=== PATIENT | male | born 1975 ===

== ENCOUNTER 2016-09-23 10:12 | Emergency (ER) | payer OTHER ==
[2016-09-23 10:28] VITALS: BP 154/102; PULSE 62; RESP 19; TEMP 98.2; O2SAT 98
[2016-09-23] MEDS ORDERED: Naproxen 500 MG TAB PO ONE ×2 (11:14→11:27)
--- NOTE | 2016-09-23 11:44 | ED PDOC ---
HPI: General Adult Time Seen by Provider: 09/23/16 10:43 Chief Complaint (Nursing): Lower Extremity Problem/Injury Chief Complaint (Provider): right knee pain History Per: Patient History/Exam Limitations: no limitations Additional Complaint(s): 41yo male comes to the ED complaining of atraumatic right knee pain for 3 days. Worse with movement. Denies fever, rash, swelling. Past Medical History Reviewed: Historical Data, Nursing Documentation, Vital Signs Vital Signs: Last Vital Signs Temp 98.2 F 09/23/16 10:27 Pulse 62 09/23/16 10:27 Resp 19 09/23/16 10:27 BP 154/102 H 09/23/16 10:27 Pulse Ox 98 09/23/16 11:46 - Medical History PMH: Asthma Denies: Alzheimer's Disease, Anemia, Anxiety, Arthritis, Atrial Fibrillation , Bipolar Disorder, Bronchitis, CAD, Cardia Arrhythmia, CHF, COPD, Crohn's Disease, Dementia, Depression, Diverticulitis, Emphysema, Fractures, Gastritis, Gall Bladder Disease, HIV, HTN, Hypercholesterolemia, Hyperthyroidism, Hypothyroidism, Kidney Stones, Migraine, Mitral Valve Prolapse, Multiple Sclerosis, Osteoporosis, Pancreatitis, Paranoia, Parkinson's Disease, Peripheral Edema, Pneumonia, Post Traumatic Stress Disorder, Pulmonary Embolism , Chronic Kidney Disease, Rheumatoid Arthritis, Schizophrenia, Seizures, Sickle Cell Disease, Sexually Transmitted Disease, Sleep Apnea, TIA - Surgical History Surgical History: Denies: Appendectomy, CABG, Carotid Endarterectomy, Cholecystectomy, Coronary Stent, Pacemaker, Tonsillectomy - Family History Family History: States: Unknown Family Hx - Home Medications Home Medications: Ambulatory Orders Medication Instructions Recorded Albuterol HFA [Ventolin HFA 90 2 puff IH Q4 PRN #0 puff 04/29/14 mcg/actuation (8 g)] Prednisone [Deltasone] 40 mg PO DAILY #0 tab 04/29/14 levoFLOXacin [Levaquin] 500 mg PO DAILY #0 tab 04/29/14 Naproxen [Naprosyn] 500 mg PO BID PRN #30 tab 09/23/16 - Allergies Allergies/Adverse Reactions: Allergies Allergy/AdvReac Type Severity Reaction Status Date / Time No Known Allergies Allergy Verified 04/26/14 09:33 Review of Systems ROS Statement: Except As Marked, All Systems Reviewed And Found Negative Constitutional: Negative for: Fever Musculoskeletal: Positive for: Other (knee pain) Skin: Negative for: Rash Physical Exam - Reviewed Nursing Documentation Reviewed: Yes Vital Signs Reviewed: Yes - Physical Exam Appears: Positive for: Well, Non-toxic, No Acute Distress Head Exam: Positive for: ATRAUMATIC, NORMAL INSPECTION, NORMOCEPHALIC Skin: Positive for: Warm, Dry Extremity: Positive for: Other (Minimal tenderness on medial surface of right knee. Full ROM actively. No joint laxity.). Negative for: Deformity, Swelling - ECG O2 Sat by Pulse Oximetry: 98 (RA) Pulse Ox Interpretation: Normal - Radiology X-Ray: Interpreted by Me (Knee x-ray) X-Ray Interpretation: No Acute Disease - Progress ED Course And Treament: Knee cammie wrapped by DIANE. Disposition - Clinical Impression Clinical Impression: Knee pain - Patient ED Disposition Is Patient to be Admitted: No - Disposition Referrals: Juan Melendez III, MD [Staff Provider] - [facility] [Outside] Disposition: Routine/Home Disposition Time: 13:25 Condition: STABLE Prescriptions: Naproxen [Naprosyn] 500 mg PO BID PRN #30 tab PRN Reason: Pain Instructions: Knee Pain (ED) Additional Comments - Additional Comments Additional Comments: Scribe Attestation: Documented by Donnie Kyle acting as a scribe for Daniel Riley PA-C. Provider Scribe Attestation: All medical record entries made by the Scribe were at my direction and personally dictated by me. I have reviewed the chart and agree that the record accurately reflects my personal performance of the history, physical exam, medical decision making, and the department course for this patient. I have also personally directed, reviewed, and agree with the discharge instructions and disposition.
--- NOTE | 2016-09-23 14:16 | RAD ---
PROCEDURE: Right Knee Radiographs. HISTORY: pain COMPARISON: None. FINDINGS: BONES: Normal. No fracture. JOINTS: Normal. No osteoarthritis. JOINT EFFUSION: None. OTHER FINDINGS: None. IMPRESSION: No acute findings related to/accounting for the clinical presentation.
== END 2016-09-23 13:43 | disposition home or self-care (01) ==
LOC: H.ER 10:12
DX: M25.561 Pain in right knee (principal)

== ENCOUNTER 2016-11-12 10:43 | Observation (INO) | payer OTHER, SELFPAY ==
[2016-11-12 10:50] VITALS: BMI 36.8
[2016-11-12] MEDS ORDERED: Albuterol-Ipratrop 3 mg / 0.5 (3 ml) UD INH STA ×2 (11:07→11:08)
[2016-11-12] MEDS ORDERED: Sodium Chloride 0.9% 500 ML IV STA (11:07)
[2016-11-12] MEDS ORDERED: Albuterol-Ipratrop 3 mg / 0.5 (3 ml) UD IH STA (11:07)
[2016-11-12] MEDS ORDERED: Albuterol 0.083% Inhal Sol (2.5 mg/3 mL) UD ONE (11:08)
--- NOTE | 2016-11-12 11:08 | ED PDOC ---
HPI: SOB/CHF/COPD Time Seen by Provider: 11/12/16 11:02 Chief Complaint (Nursing): Shortness Of Breath Chief Complaint (Provider): Dyspnea History Per: Patient History/Exam Limitations: no limitations Onset/Duration Of Symptoms: Days (3 weeks) Current Symptoms Are (Timing): Still Present Additional Complaint(s): Pt. with dyspnea, wheezes, chest pain, cough, congestion, yellow phlegm. No back pain, nausea, vomit, diarrhea, abd pain. No weakness. No headaches or dizziness. No neck pain. Past Medical History Vital Signs: Last Vital Signs Temp 98.5 F 11/12/16 10:50 Pulse 79 11/12/16 10:50 Resp 18 11/12/16 11:29 BP 171/102 H 11/12/16 10:50 Pulse Ox 98 11/12/16 13:36 - Medical History PMH: Asthma, HTN Denies: Alzheimer's Disease, Anemia, Anxiety, Arthritis, Atrial Fibrillation , Bipolar Disorder, Bronchitis, CAD, Cardia Arrhythmia, CHF, COPD, Crohn's Disease, Dementia, Depression, Diverticulitis, Emphysema, Fractures, Gastritis, Gall Bladder Disease, HIV, Hypercholesterolemia, Hyperthyroidism, Hypothyroidism , Kidney Stones, Migraine, Mitral Valve Prolapse, Multiple Sclerosis, Osteoporosis, Pancreatitis, Paranoia, Parkinson's Disease, Peripheral Edema, Pneumonia, Post Traumatic Stress Disorder, Pulmonary Embolism, Chronic Kidney Disease, Rheumatoid Arthritis, Schizophrenia, Seizures, Sickle Cell Disease, Sexually Transmitted Disease, Sleep Apnea, TIA - Surgical History Surgical History: Denies: Appendectomy, CABG, Carotid Endarterectomy, Cholecystectomy, Coronary Stent, Pacemaker, Tonsillectomy - Family History Family History: States: Unknown Family Hx - Living Arrangements Living Arrangements: With Family - Social History Current smoker - smoking cessation education provided: No Alcohol: None Drugs: Denies - Home Medications Home Medications: Ambulatory Orders Medication Instructions Recorded No Known Home Med 11/12/16 - Allergies Allergies/Adverse Reactions: Allergies Allergy/AdvReac Type Severity Reaction Status Date / Time No Known Allergies Allergy Verified 11/12/16 10:58 Review of Systems ROS Statement: Except As Marked, All Systems Reviewed And Found Negative ENT: Positive for: Nose Congestion Cardiovascular: Positive for: Chest Pain Respiratory: Positive for: Cough, Shortness of Breath, Sputum Physical Exam - Reviewed Nursing Documentation Reviewed: Yes Vital Signs Reviewed: Yes - Physical Exam Appears: Positive for: Non-toxic, No Acute Distress Head Exam: Positive for: ATRAUMATIC, NORMAL INSPECTION, NORMOCEPHALIC Skin: Positive for: Normal Color, Warm, DRY Eye Exam: Positive for: EOMI, Normal appearance, PERRL ENT: Positive for: Normal ENT Inspection Neck: Positive for: Normal, Painless ROM, Supple Cardiovascular/Chest: Positive for: Regular Rate, Rhythm, Chest Non Tender. Negative for: Edema Respiratory: Positive for: Wheezing (b/l). Negative for: Accessory Muscle Use Gastrointestinal/Abdominal: Positive for: Normal Exam, Bowel Sounds, Soft. Negative for: Tenderness Back: Positive for: Normal Inspection. Negative for: L CVA Tenderness, R CVA Tenderness Extremity: Positive for: Normal ROM. Negative for: Tenderness, Pedal Edema Neurologic/Psych: Positive for: Alert, Oriented - Laboratory Results Result Diagrams: 11/12/16 11:20 11/12/16 11:20 Interpretation Of Abn Labs: 11.5wbc - ECG ECG: Positive for: Interpreted By Me, Viewed By Me ECG Rhythm: Positive for: Nonspecific Changes Interpretation Of Abn EKG: changed from old 2013 O2 Sat by Pulse Oximetry: 98 Pulse Ox Interpretation: Normal - Radiology X-Ray: Read By Radiologist X-Ray Interpretation: No Acute Disease - Progress ED Course And Treament: 1352: Stable. AAOx3. Pain free. Spoke with Dr. Jose who will admit. Abnormal ekg. Disposition - Clinical Impression Clinical Impression: Acute electrocardiogram changes, URI (upper respiratory infection) - Patient ED Disposition Is Patient to be Admitted: Yes Counseled Patient/Family Regarding: Studies Performed, Diagnosis - Disposition Disposition Time: 13:53 Condition: FAIR - Pt Status Changed To: Hospital Disposition Of: Observation - POA Present On Arrival: None
[2016-11-12] MEDS ORDERED: Albuterol-Ipratrop 3 mg / 0.5 (3 ml) UD ONE (11:15)
[2016-11-12 11:37] LABS: BASO # 0.1 K/uL (0.0-0.2); BASO % 0.6 % (0.0-2.0); EOS % 8.7 % (0.0-4.0); HEMATOCRIT 43.4 % (35.0-51.0); LYMPH # 1.8 K/uL (1.0-4.3); MEAN CELL VOLUME 88.1 fl (80.0-94.0); MEAN CORPUSCULAR HEMOGLOBIN 29.6 pg (27.0-31.0); MEAN CORPUSCULAR HGB CONC 33.6 g/dL (33.0-37.0); MEAN PLATELET VOLUME 8.4 fl (7.2-11.7); MONO # 0.9 K/uL (0.0-0.8); NEUT # 7.7 K/uL (1.8-7.0); NEUT % 66.7 % (50.0-75.0); RED CELL DISTRIBUTION WIDTH 13.4 % (11.5-14.5); WHITE BLOOD COUNT 11.5 K/uL (4.8-10.8)
[2016-11-12 11:51] LABS: ALB/GLOB RATIO 1.5 (1.0-2.1); ALKALINE PHOSPHATASE 71 U/L (38-126); ALT/SGPT 60 U/L (21-72); AST/SGOT 32 U/L (17-59); BILIRUBIN,TOTAL 1.8 mg/dl (0.2-1.3); BLOOD UREA NITROGEN 16 mg/dl (9-20); CALCIUM 9.1 mg/dL (8.4-10.2); CARBON DIOXIDE 25 mmol/L (22-30); CHLORIDE 104 mmol/L (98-107); GFR AFRICAN-AMERICAN > 60; GLUCOSE,RANDOM 150 mg/dL (75-110); POTASSIUM 3.8 MMOL/L (3.6-5.0); SODIUM 141 mmol/l (132-148); TOTAL PROTEIN 7.6 G/DL (6.3-8.2)
[2016-11-12 12:07] LABS: PARTIAL THROMBOPLASTIN TIME 29.8 Seconds (25.6-37.1)
--- NOTE | 2016-11-12 13:11 | RAD ---
HISTORY: dyspnea COMPARISON: 04/26/2014 FINDINGS: LUNGS: No active pulmonary disease. PLEURA: No significant pleural effusion identified, no pneumothorax apparent. CARDIOVASCULAR: Normal. OSSEOUS STRUCTURES: No significant abnormalities. VISUALIZED UPPER ABDOMEN: Normal. OTHER FINDINGS: None. IMPRESSION: No active disease.
--- NOTE | 2016-11-12 14:40 | CP.PCM.HP ---
History of Present Illness - History of Present Illness History of Present Illness: CC: chest pressure, trouble breathing HPI: 41 year old male with PMH asthma and hypertension, noncompliant with medications presents to the emergency room after a 2 week history of mild pressure like chest pain, nonradiating, at rest. He has also had cough, dyspnea , with asthma exacerbation. Both chest pain and asthma exacerbation worsened overnight, which is what brought the patient into the emergency room today. EKG showed abnormal changes, with 1 mm elevations V1-V3, and inversions in V4-6, LVH. Repeat EKG without any changes. Patient troponin neg, pt +chest pressure which may either be cardiac or pulmonary in nature due to cough and asthma exacerbation as well. 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 Cardiology consult Dr. Luly Cassidy. CXR no active disease. BP 171/102 in ER, antihypertensives administered. Tele OBS for chest pain, asthma exacerbation. ROS: per HPI, 12 systems reviewed and negative PMH: asthma, HTN PSH: denies FH: denies SH: denies tobacco, ETOH, IVDU Meds: as below Allergies: NKDA Vitals: reviewed and currently stable Exam: GEN: WDWN, alert, cooperative HEENT: NCAT, PERRL, EOMI NECK: supple, no JVD, no lymphadenopathy CARDIAC: +S1S2 RRR LUNG: rhonchi, no respiratory distress ABD: SOFT NT ND BSX4 NO MASSES NO HSM EXT: +pedal pulses, equal strength NEURO: AAOx3 SKIN warm, dry PSYCH normal mood, normal affect Labs: 11/12/16 11:20 11/12/16 11:20 Rads: CXR no active disease Active Medications: Albuterol/Ipratropium [Duoneb 3 mg/0.5 mg (3 ml) UD] 3 ml INH RQ4 PRN Polyethylene Glycol/Polyvinyl [Artificial Tears] 2 drop OU Q4 PRN Clopidogrel [Plavix] 75 mg PO DAILY Lisinopril [Zestril] 10 mg PO DAILY Isosorbide Mononitrate [Imdur] 60 mg PO DAILY Nitroglycerin [Nitrostat SL Tab] 0.4 mg SL Q5M PRN Aspirin [Aspirin Chewable] 81 mg PO DAILY Enoxaparin [Lovenox] 40 mg SC DAILY Assessment and Plan: 41 year old male with PMH asthma and hypertension, noncompliant with medications presents to the emergency room after a 2 week history of mild pressure like chest pain, nonradiating, at rest. He has also had cough, dyspnea , with asthma exacerbation. Both chest pain and asthma exacerbation worsened overnight, which is what brought the patient into the emergency room today. EKG showed abnormal changes, with 1 mm elevations V1-V3, and inversions in V4-6, LVH. Repeat EKG without any changes. Patient troponin neg, pt +chest pressure which may either be cardiac or pulmonary in nature due to cough and asthma exacerbation as well. 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 Cardiology consult Dr. Luly Cassidy. CXR no active disease. BP 171/102 in ER, antihypertensives administered. Tele OBS for chest pain, asthma exacerbation. Chest Pain Hypertension Abnormal EKG changes, severe LVH, possible ischemic changes As above, discussed with ER physician as well as [facility] physician, rec no code heart at this time, full cardiac work up. Trend cardiac enzymes ECHO ordered routine Lipid panel, TSH pending ASA, plavix, low dose BB (after utox results) Imdur, ACEI SL nitro for chest pain Cardiology consult Dr. Luly Cassidy Asthma Exacerbation Solumedrol 60 q 8 Bronchodilators CXR negative for COPD or pneumonia Mag Sulfate x1 VTE ppx Present on Admission - Present on Admission Any Indicators Present on Admission: No Past Patient History - Past Medical History & Family History Past Medical History?: Yes - Past Social History Alcohol: None Drugs: Denies - CARDIAC Hx Atrial Fibrillation: No Hx Cardia Arrhythmia: No Hx Congestive Heart Failure: No Hx Hypercholesterolemia: No Hx Hypertension: Yes Hx Mitral Valve Prolapse: No Hx Pacemaker: No Hx Peripheral Edema: No - PULMONARY Hx Asthma: Yes Hx Bronchitis: No Hx Chronic Obstructive Pulmonary Disease (COPD): No Hx Emphysema: No Hx Pneumonia: No Hx Pulmonary Embolism: No Hx Sleep Apnea: No - NEUROLOGICAL Hx Alzheimer's Disease: No Hx Dementia: No Hx Migraine: No Hx Multiple Sclerosis: No Hx Parkinson's Disease: No Hx Seizures: No Hx Transient Ischemic Attacks (TIA): No - HEENT Hx HEENT Problems: No Hx Blind: No Hx Cataracts: No Hx Deafness: No Hx Difficulty Chewing: No Hx Epistaxis: No Hx Glaucoma: No Hx Macular Degeneration: No - RENAL Hx Chronic Kidney Disease: No Hx Kidney Stones: No - ENDOCRINE/METABOLIC Hx Hyperthyroidism: No Hx Hypothyroidism: No - HEMATOLOGICAL/ONCOLOGICAL Hx Anemia: No Hx Human Immunodeficiency Virus (HIV): No Hx Sickle Cell Disease: No - INTEGUMENTARY Hx Dermatological Problems: No Hx Basil Cell: No Hx Parrish: No Hx Cellulitis: No Hx Eczema: No Hx Melanoma: No Hx Psoriasis: No Hx Squamous Cell: No - MUSCULOSKELETAL/RHEUMATOLOGICAL Hx Arthritis: No Hx Fractures: No Hx Osteoporosis: No Hx Rheumatoid Arthritis: No - GASTROINTESTINAL Hx Crohn's Disease: No Hx Diverticulitis: No Hx Gall Bladder Disease: No Hx Gastritis: No Hx Pancreatitis: No - GENITOURINARY/GYNECOLOGICAL Hx Sexually Transmitted Disorders: No - PSYCHIATRIC Hx Anxiety: No Hx Bipolar Disorder: No Hx Depression: No Hx Paranoia: No Hx Post Traumatic Stress Disorder: No Hx Schizophrenia: No - SURGICAL HISTORY Hx Appendectomy: No Hx Carotid Endarterectomy: No Hx Cholecystectomy: No Hx Coronary Artery Bypass Graft: No Hx Coronary Stent: No Hx Tonsillectomy: No - ANESTHESIA Hx Anesthesia: Yes Hx Anesthesia Reactions: No Hx Malignant Hyperthermia: No Meds Home Medications: Home Medication List Medication Instructions Recorded Confirmed Type Aspirin [Aspirin Chewable] 81 mg PO DAILY #20 11/13/16 Rx Lisinopril [Zestril] 10 mg PO DAILY #30 tab 11/13/16 Rx hydroCHLOROthiazide [Microzide] 12.5 mg PO DAILY #30 cap 11/13/16 Rx Allergies/Adverse Reactions: Allergies Allergy/AdvReac Type Severity Reaction Status Date / Time No Known Allergies Allergy Verified 11/12/16 10:58 Results - Vital Signs Recent Vital Signs: Last Vital Signs Temp 98.5 F 11/12/16 10:50 Pulse 79 11/12/16 10:50 Resp 18 11/12/16 11:29 BP 171/102 H 11/12/16 10:50 Pulse Ox 98 11/12/16 13:53 - Labs Result Diagrams: 11/12/16 11:20 11/12/16 11:20
[2016-11-12] MEDS ORDERED: Albuterol-Ipratrop 3 mg / 0.5 (3 ml) UD INH PRN (14:44)
[2016-11-12] MEDS ORDERED: Artificial Tears Opht Soln OU PRN (14:46)
[2016-11-12] MEDS ORDERED: methylPREDNISolone 60 MG in Sodium Chloride 0.9% 50 ML IV ONE (15:00)
--- NOTE | 2016-11-12 17:03 | CARD ---
APPROVED REPORT EKG Measurement Heart [id number] 140P-8 [id number] <Conclusion> Normal sinus rhythm Voltage criteria for left ventricular hypertrophy ST & T wave abnormality, consider inferolateral ischemia Abnormal ECG
[2016-11-12] MEDS ORDERED: Magnesium Sulfate 2 gm/50 ml 2 GM/50 ML BAG IVPB ONE (17:39)
[2016-11-12 17:45] LABS: TROPONIN I 0.013 ng/mL (0.00-0.120)
[2016-11-12] MEDS ORDERED: Pneumococcal 23-Valent Vaccine IM ONE (18:36)
[2016-11-12 23:47] VITALS: RESP 20
[2016-11-13] MEDS: methylPREDNISolone 60 MG in Sodium Chloride 0.9% 50 ML IVPB SCH ×2 (01:42→09:06)
--- NOTE | 2016-11-13 08:33 | CP.PCM.CON ---
History of Present Illness - History of Present Illness History of Present Illness: Full Note Dictated. Chest Wall Pain Acute exacerbation of Chr Br Asthma Hypertension Obesity Non compliance with med management No evidence of ACS EKG consistent with LVH (awaits echo today) Past Patient History - Past Medical History & Family History Past Medical History?: Yes - Past Social History Smoking Status: Former Smoker - CARDIAC Hx Cardiac Disorders: Yes Hx Atrial Fibrillation: No Hx Cardia Arrhythmia: No Hx Congestive Heart Failure: No Hx Hypercholesterolemia: No Hx Hypertension: Yes Hx Mitral Valve Prolapse: No Hx Pacemaker: No Hx Peripheral Edema: No - PULMONARY Hx Respiratory Disorders: Yes Hx Asthma: Yes Hx Bronchitis: No Hx Chronic Obstructive Pulmonary Disease (COPD): No Hx Emphysema: No Hx Pneumonia: No Hx Pulmonary Embolism: No Hx Sleep Apnea: No - NEUROLOGICAL Hx Neurological Disorder: No Hx Alzheimer's Disease: No Hx Dementia: No Hx Migraine: No Hx Multiple Sclerosis: No Hx Parkinson's Disease: No Hx Seizures: No Hx Transient Ischemic Attacks (TIA): No - HEENT Hx HEENT Problems: No Hx Blind: No Hx Cataracts: No Hx Deafness: No Hx Difficulty Chewing: No Hx Epistaxis: No Hx Glaucoma: No Hx Macular Degeneration: No - RENAL Hx Chronic Kidney Disease: No Hx Kidney Stones: No - ENDOCRINE/METABOLIC Hx Endocrine Disorders: No Hx Hyperthyroidism: No Hx Hypothyroidism: No - HEMATOLOGICAL/ONCOLOGICAL Hx Blood Disorders: No Hx Anemia: No Hx Blood Transfusions: No Hx Human Immunodeficiency Virus (HIV): No Hx Sickle Cell Disease: No - INTEGUMENTARY Hx Dermatological Problems: No Hx Basil Cell: No Hx Parrish: No Hx Cellulitis: No Hx Eczema: No Hx Melanoma: No Hx Psoriasis: No Hx Squamous Cell: No - MUSCULOSKELETAL/RHEUMATOLOGICAL Hx Musculoskeletal Disorders: No Hx Arthritis: No Hx Falls: No Hx Fractures: No Hx Osteoporosis: No Hx Rheumatoid Arthritis: No - GASTROINTESTINAL Hx Gastrointestinal Disorders: No Hx Crohn's Disease: No Hx Diverticulitis: No Hx Gall Bladder Disease: No Hx Gastritis: No Hx Pancreatitis: No - GENITOURINARY/GYNECOLOGICAL Hx Genitourinary Disorders: No Hx Sexually Transmitted Disorders: No - PSYCHIATRIC Hx Psychophysiologic Disorder: No Hx Anxiety: No Hx Bipolar Disorder: No Hx Depression: No Hx Paranoia: No Hx Post Traumatic Stress Disorder: No Hx Schizophrenia: No Hx Substance Use: No - SURGICAL HISTORY Hx Surgeries: Yes Hx Appendectomy: No Hx Carotid Endarterectomy: No Hx Cholecystectomy: No Hx Coronary Artery Bypass Graft: No Hx Coronary Stent: No Hx Tonsillectomy: No Other/Comment: Hernia Repair - ANESTHESIA Hx Anesthesia: Yes Hx Anesthesia Reactions: No Hx Malignant Hyperthermia: No Meds Allergies/Adverse Reactions: Allergies Allergy/AdvReac Type Severity Reaction Status Date / Time No Known Allergies Allergy Verified 11/12/16 10:58 - Medications Medications: Current Medications Albuterol/Ipratropium (Duoneb 3 Mg/0.5 Mg (3 Ml) Ud) 3 ml INH RQ4 PRN PRN Reason: Shortness of Breath Artificial Tears (Artificial Tears) 2 drop OU Q4 PRN PRN Reason: Dry eyes Aspirin (Aspirin Chewable) 81 mg PO DAILY [facility] Enoxaparin Sodium (Lovenox) 40 mg SC DAILY [facility] PRN Reason: Protocol Hydrochlorothiazide (Microzide) 12.5 mg PO DAILY [facility] Methylprednisolone 60 mg/ (Sodium Chloride) 50.96 mls @ 101.92 mls/hr IVPB Q8 [facility] Last Admin: 11/13/16 01:42 Dose: 101.92 mls/hr Lisinopril (Zestril) 10 mg PO DAILY [facility] Last Admin: 11/12/16 15:48 Dose: 10 mg Results - Vital Signs Recent Vital Signs: Last Vital Signs Temp 97.7 F 11/13/16 08:05 Pulse 75 11/13/16 08:05 Resp 20 11/13/16 08:05 BP 130/67 11/13/16 08:05 Pulse Ox 94 L 11/13/16 08:05 - Labs Result Diagrams: 11/12/16 11:20 11/12/16 11:20 Labs: Laboratory Results - last 24 hr 11/12/16 11/12/16 11/12/16 15:15 16:30 16:30 Hemoglobin A1c 5.5 Troponin I 0.0130 Triglycerides 47 Cholesterol 191 LDL Cholesterol Direct 137 H HDL Cholesterol 46 TSH 3rd Generation Urine Opiates Screen Negative Urine Methadone Screen Negative Ur Barbiturates Screen Negative Ur Phencyclidine Scrn Negative Ur Amphetamines Screen Negative U Benzodiazepines Scrn Negative U Oth Cocaine Metabols Negative U Cannabinoids Screen Negative 11/13/16 11/13/16 03:03 04:10 Hemoglobin A1c Troponin I 0.0390 Triglycerides Cholesterol LDL Cholesterol Direct HDL Cholesterol TSH 3rd Generation 1.25 Urine Opiates Screen Urine Methadone Screen Ur Barbiturates Screen Ur Phencyclidine Scrn Ur Amphetamines Screen U Benzodiazepines Scrn U Oth Cocaine Metabols U Cannabinoids Screen
--- NOTE | 2016-11-13 08:52 | CARD ---
APPROVED REPORT EKG Measurement Heart [id number] [place] 158P50 [id number] <Conclusion> Normal sinus rhythm Possible Left atrial enlargement Left ventricular hypertrophy ST elevation, consider anterior injury or acute infarct ACUTE [place] / STEMI Abnormal ECG
[2016-11-13] MEDS ORDERED: Enoxaparin 40 mg Syringe SC SCH (09:00)
--- NOTE | 2016-11-13 10:34 | CON ---
DATE: 11/13/2016 He is hospitalized under the hospitalist's care in room 401, bed 2. HISTORY OF PRESENT ILLNESS: This 41-year-old chronically overweight man came into the hospital compl aining of difficulty in breathing and chest pain which is all over his anterior chest, including both flanks. This was aggravated on attempting to cough. The patient has had this pain for more than 2- 1/2-3 days now. He has been chronically overweight and has had bronchial asthma for which he has not taken any medications. He also knows that he has hypertension, but has not been able to take medica tions, possibly unable to afford it. He does not smoke. He gives history of his father having coron ayse artery disease and diabetes. The patient has never been told of being diabetic. Physical activi ty never brings on any chest pain. The discomfort in the chest as described about does not radiate t o his arms or to his jaw. PHYSICAL EXAMINATION: GENERAL: Shows a young man who is overweight, who is lying comfortably in bed, at this point free of any chest pain, but does admit that attempts to cough bring on the flank pain that has bothered him. VITAL SIGNS: He breathes at approximately 18-20 breaths per minute, has a heart rate of 64 beats per minute. He has received carvedilol yesterday evening. His blood pressure was 140/90 mmHg. NECK: His jugular venous pressure was not elevated. EXTREMITIES: There was no edema over his lower extremities. The pedal pulses were well felt. There were no carotid bruits. CHEST: Barrel shaped. HEART: The apex was not palpable. The first and second heart sounds were normal. A very brief apic al systolic murmur was audible. There was no S3 gallop. LUNGS: The expiration was prolonged. There were a few wheezes audible at both bases. No rales were audible. ABDOMEN: Soft. Liver and spleen were not palpable. His electrocardiogram showed sinus rhythm with a pattern of left ventricular hypertrophy with ST-T ab normalities typical of LVH. No Q-waves were seen on his electrocardiogram. LABORATORY DATA: Showed no evidence of any myocyte injury with 3 troponin samples acquired, 8 hours apart being within normal limits. His hemoglobin and hematocrit were 14.6 g and 43.4%, respectively. His WBC count was 11,500 of which 66% were neutrophils. His platelet count was normal. His BUN an d creatinine were 13 and 0.7 mg%. His electrolytes were normal. Liver profile was normal and proBNP was 364 mcg/mL. TSH level was normal. His LDL cholesterol was 137 with HDL of 46 mg%. IMPRESSION: At this time is chest wall pain with no evidence of acute coronary syndrome in a patient who is noncompliant with his medications, acute exacerbation of chronic bronchial asthma with chest wall pain, hypertension, chronic obesity. His electrocardiogram shows a pattern of left ventricular hypertrophy. No evidence of an acute coronary syndrome is seen here. I have discontinued beta block jarod given the fact that he has an exacerbation of chronic obstructive pulmonary disease. With his AC E inhibitor, I have given him hydrochlorothiazide to maintain a regular rhythm and again instructed h im regarding reducing salt intake in his diet and losing weight. An echocardiogram is awaited. I wi ll review the case after an echocardiogram. Lavon Cassidy MD cc: [id number] TT: 11/13/2016 10:33:45 Confirmation # [id number] Dictation # [id number]
[2016-11-13 10:38] VITALS: PULSE 75; TEMP 97.7
--- NOTE | 2016-11-13 10:40 | CP.PCM.DIS ---
Provider - Provider Date of Admission: 11/12/16 13:51 Attending physician: Vivian Jose DO Time Spent in preparation of Discharge (in minutes): 30 Diagnosis - Discharge Diagnosis (1) Acute electrocardiogram changes Status: Acute (2) URI (upper respiratory infection) Status: Acute (3) Acute asthma exacerbation Status: Acute Hospital Course - Lab Results Lab Results: Most Recent Lab Values WBC 11.5 K/uL (4.8-10.8) H 11/12/16 11:20 RBC 4.93 Mil/uL (4.40-5.90) 11/12/16 11:20 Hgb 14.6 g/dL (12.0-18.0) 11/12/16 11:20 Hct 43.4 % (35.0-51.0) 11/12/16 11:20 MCV 88.1 fl (80.0-94.0) 11/12/16 11:20 MCH 29.6 pg (27.0-31.0) 11/12/16 11:20 MCHC 33.6 g/dL (33.0-37.0) 11/12/16 11:20 RDW 13.4 % (11.5-14.5) 11/12/16 11:20 Plt Count 221 K/uL (130-400) 11/12/16 11:20 MPV 8.4 fl (7.2-11.7) 11/12/16 11:20 Neut % (Auto) 66.7 % (50.0-75.0) 11/12/16 11:20 Lymph % (Auto) 16.0 % (20.0-40.0) L 11/12/16 11:20 Butts % (Auto) 8.0 % (0.0-10.0) 11/12/16 11:20 Eos % (Auto) 8.7 % (0.0-4.0) H 11/12/16 11:20 Baso % (Auto) 0.6 % (0.0-2.0) 11/12/16 11:20 Neut # 7.7 K/uL (1.8-7.0) H 11/12/16 11:20 Lymph # 1.8 K/uL (1.0-4.3) 11/12/16 11:20 Butts # 0.9 K/uL (0.0-0.8) H 11/12/16 11:20 Eos # 1.0 K/uL (0.0-0.7) H 11/12/16 11:20 Baso # 0.1 K/uL (0.0-0.2) 11/12/16 11:20 PT 11.8 Seconds (9.8-13.1) 11/12/16 11:20 INR 1.0 (0.9-1.2) 11/12/16 11:20 APTT 29.8 Seconds (25.6-37.1) 11/12/16 11:20 Sodium 141 mmol/l (132-148) 11/12/16 11:20 Potassium 3.8 MMOL/L (3.6-5.0) 11/12/16 11:20 Chloride 104 mmol/L (98-107) 11/12/16 11:20 Carbon Dioxide 25 mmol/L (22-30) 11/12/16 11:20 Anion Gap 16 (10-20) 11/12/16 11:20 BUN 16 mg/dl (9-20) 11/12/16 11:20 Creatinine 0.7 mg/dL (0.8-1.5) L 11/12/16 11:20 Est GFR ( Amer) > 60 11/12/16 11:20 Est GFR (Non-Af Amer) > 60 11/12/16 11:20 Random Glucose 150 mg/dL (75-110) H 11/12/16 11:20 Hemoglobin A1c 5.5 % (4.2-6.5) 11/12/16 16:30 Calcium 9.1 mg/dL (8.4-10.2) 11/12/16 11:20 Total Bilirubin 1.8 mg/dl (0.2-1.3) H 11/12/16 11:20 AST 32 U/L (17-59) 11/12/16 11:20 ALT 60 U/L (21-72) 11/12/16 11:20 Alkaline Phosphatase 71 U/L (38-126) 11/12/16 11:20 Troponin I 0.0390 ng/mL (0.00-0.120) 11/13/16 03:03 NT-Pro-B Natriuret Pep 364 pg/ml (0-450) 11/12/16 11:20 Total Protein 7.6 G/DL (6.3-8.2) 11/12/16 11:20 Albumin 4.5 g/dL (3.5-5.0) 11/12/16 11:20 Globulin 3.1 gm/dL (2.2-3.9) 11/12/16 11:20 Albumin/Globulin Ratio 1.5 (1.0-2.1) 11/12/16 11:20 Triglycerides 47 mg/DL (0-149) 11/12/16 16:30 Cholesterol 191 mg/dL (0-199) 11/12/16 16:30 LDL Cholesterol Direct 137 mg/dL (0-129) H 11/12/16 16:30 HDL Cholesterol 46 MG/DL (30-70) 11/12/16 16:30 TSH 3rd Generation 1.25 mIU/ML (0.46-4.68) 11/13/16 04:10 Urine Opiates Screen Negative (NEGATIVE) 11/12/16 15:15 Urine Methadone Screen Negative (NEGATIVE) 11/12/16 15:15 Ur Barbiturates Screen Negative (NEGATIVE) 11/12/16 15:15 Ur Phencyclidine Scrn Negative (NEGATIVE) 11/12/16 15:15 Ur Amphetamines Screen Negative (NEGATIVE) 11/12/16 15:15 U Benzodiazepines Scrn Negative (NEGATIVE) 11/12/16 15:15 U Oth Cocaine Metabols Negative (NEGATIVE) 11/12/16 15:15 U Cannabinoids Screen Negative (NEGATIVE) 11/12/16 15:15 - Hospital Course Hospital Course: 41 year old male with PMH asthma and hypertension, noncompliant with medications presents to the emergency room after a 2 week history of mild pressure like chest pain, nonradiating, at rest. He has also had cough, dyspnea , with asthma exacerbation. Both chest pain and asthma exacerbation worsened overnight, which is what brought the patient into the emergency room today. EKG showed abnormal changes, with 1 mm elevations V1-V3, and inversions in V4-6, LVH. Repeat EKG without any changes. Patient troponin neg, pt +chest pressure which may either be cardiac or pulmonary in nature due to cough and asthma exacerbation as well. Discussed with ER physician as well as [facility] Kitchen Porter, no code heart at this time, however patient does need full cardiac work up this admission. Cardiology consult Dr. Luly Cassidy. CXR no active disease. BP 171/102 in ER, antihypertensives administered. Tele OBS for chest pain, asthma exacerbation. No events overnight. No active chest pain. Dyspnea improved. Troponins negative. Seen by Cardiology, no ACS. ECHO today. Will follow up as outpatient. New antihypertensives prescribed. Chest Pain Hypertension Abnormal EKG changes, severe LVH, possible ischemic changes As above, discussed with ER physician as well as [facility] physician, rec no code heart at this time, full cardiac work up. Trend cardiac enzymes ECHO ordered routine Lipid panel, TSH pending ASA, plavix, low dose BB (after utox results) Imdur, ACEI SL nitro for chest pain Cardiology consult Dr. Luly Cassidy Asthma Exacerbation Solumedrol 60 q 8 Bronchodilators CXR negative for COPD or pneumonia Mag Sulfate x1 VTE ppx Discharge Exam - Head Exam Head Exam: ATRAUMATIC, NORMAL INSPECTION, NORMOCEPHALIC - Eye Exam Eye Exam: EOMI, Normal appearance, PERRL Pupil Exam: NORMAL ACCOMODATION - ENT Exam ENT Exam: Mucous Membranes Moist, Normal Oropharynx - Neck Exam Neck exam: Full Rom, Normal Inspection - Respiratory Exam Respiratory Exam: Clear to PA & Lateral, NORMAL BREATHING PATTERN - Cardiovascular Exam Cardiovascular Exam: RRR, +S1, +S2 - GI/Abdominal Exam GI & Abdominal Exam: Normal Bowel Sounds, Soft. absent: Mass, Organomegaly, Tenderness - Extremities Exam Extremities exam: normal capillary refill, pedal pulses present - Back Exam Back exam: absent: CVA tenderness (L), CVA tenderness (R) - Neurological Exam Neurological exam: Alert, Normal Gait, Oriented x3 - Psychiatric Exam Psychiatric exam: Normal Affect, Normal Mood - Skin Skin Exam: Dry, Normal Color, Warm Discharge Plan - Discharge Medications Prescriptions: Aspirin [Aspirin Chewable] 81 mg PO DAILY #20 hydroCHLOROthiazide [Microzide] 12.5 mg PO DAILY #30 cap Lisinopril [Zestril] 10 mg PO DAILY #30 tab - Follow Up Plan Condition: FAIR Disposition: HOME/ ROUTINE Additional Instructions: Follow up with PCP and electrical maintenance engineer as outpatient in one week Resume low fat low cholesterol diet Resume activity as tolerated Take ALL NEW HIGH BLOOD PRESSURE MEDICATIONS: HYDROCHLORTHIAZIDE AND LISINOPRIL. Return to ER if condition worsens.
--- NOTE | 2016-11-13 12:20 | CARD ---
APPROVED REPORT EXAM: Two-dimensional and M-mode echocardiogram with Doppler and color Doppler. Other Information Quality : GoodRhythm : INDICATION Dyspnea Chest Pain 2D DIMENSIONS IVSd1.47 (0.7-1.1cm)LVDd5.48 (3.9-5.9cm) LVOT Diameter1.86 (1.8-2.4cm)PWd1.61 (0.7-1.1cm) IVSs2.15 (0.8-1.2cm)LVDs3.40 (2.5-4.0cm) FS (%) 37.9 %PWs2.16 (0.8-1.2cm) M-Mode DIMENSIONS Left Atrium (MM)4.12 (2.5-4.0cm)IVSd1.59 (0.7-1.1cm) Aortic Root3.65 (2.2-3.7cm)LVDd5.55 (4.0-5.6cm) Aortic Cusp Exc.2.57 (1.5-2.0cm)PWd1.66 (0.7-1.1cm) IVSs1.74 cmFS (%) 44 % LVDs3.14 (2.0-3.8cm)PWs2.46 cm Aortic Valve AoV Peak Ckgiulrd152.6cm/sAoV VTI32.3cmAO Peak GR.9mmHg LVOT Peak Kyfsepwm693.3cm/sLVOT VTI26.47cmAO Mean GR.5mmHg KIMI (VMAX)0.94gf3VYQ (VTI)0.94cm2 Mitral Valve MV E Pbxhziep12.8cm/sMV DECEL AOXR494uvLV A Lpkkmqvj28.8cm/s MV XHL86ilQ/A ratio0.9MVA (PHT)2.73cm2 TDI Lateral E' Peak V5.46cm/sMedial E' Peak V6.03cm/sE/Lateral E'10.2 E/Medial E'9.3 Pulmonary Valve PV Peak Cqmxqmjt203.0cm/s Tricuspid Valve TR Peak Fmbsbbct130nk/sRAP BIWUWBLR05fcOeHD Peak Gr.9mmHg YJLU29zsRj LEFT VENTRICLE The left ventricle is normal size. There is mild concentric left ventricular hypertrophy. The left ventricular function is normal. The left ventricular ejection fraction is within the normal range. The Ejection Fraction is 65-70%. There is normal LV segmental wall motion. The left ventricular diastolic function is normal. No left ventricle thrombus noted on this study. There is no mass noted in the left ventricle. RIGHT VENTRICLE The right ventricle is normal size. There is normal right ventricular wall thickness. The right ventricular systolic function is normal. ATRIA The left atrium is mildly dilated. The right atrium size is normal. The interatrial septum is intact with no evidence for an atrial septal defect. AORTIC VALVE The aortic valve is normal in structure and function. No aortic regurgitation is present. There is no aortic valvular stenosis. There is no aortic valvular vegetation. MITRAL VALVE The mitral valve is normal in structure and function. There is no evidence of mitral valve prolapse. There is no mitral valve stenosis. There is no mitral valve regurgitation noted. TRICUSPID VALVE The tricuspid valve is normal in structure and function. There is no tricuspid valve regurgitation noted. There is no tricuspid valve prolapse or vegetation. There is no tricuspid valve stenosis. PULMONIC VALVE The pulmonary valve is normal in structure and function. There is no pulmonic valvular regurgitation. There is no pulmonic valvular stenosis. GREAT VESSELS The aortic root is normal in size. The IVC is normal in size and collapses >50% with inspiration. PERICARDIAL EFFUSION The pericardium appears normal. There is no pleural effusion. <Conclusion> The left ventricle is normal size. There is mild concentric left ventricular hypertrophy. The left ventricular function is normal. The left ventricular ejection fraction is within the normal range. The Ejection Fraction is 65-70%.
[2016-11-13 12:25] VITALS: BP 137/80; O2SAT 96
[2016-11-13] MEDS ORDERED: Pneumococcal 23-Valent Vaccine IM ONE (14:00)
== END 2016-11-13 14:51 | disposition home or self-care (01) ==
LOC: H.ER 10:43 → H.ERHOLD 13:51 → H.TEL 16:14
PROVIDERS: ADMIT Student in an Organized Health Care Education/Training Program; ATTEND Student in an Organized Health Care Education/Training Program
DX: J45.901 Unspecified asthma with (acute) exacerbation (principal); R94.31 Abnormal electrocardiogram [ECG] [EKG]; J06.9 Acute upper respiratory infection, unspecified; R07.89 Other chest pain; J44.1 Chronic obstructive pulmonary disease with (acute) exacerbation; E66.9 Obesity, unspecified; I11.9 Hypertensive heart disease without heart failure; I51.7 Cardiomegaly; Z79.899 Other long term (current) drug therapy; Z83.3 Family history of diabetes mellitus; Z82.49 Family history of ischemic heart disease and other diseases of the circulatory system; Z87.891 Personal history of nicotine dependence; Z91.14 Patient's other noncompliance with medication regimen; Z23 Encounter for immunization; Z68.36 Body mass index [BMI] 36.0-36.9, adult

== ENCOUNTER 2017-07-02 08:57 | Emergency (ER) | payer SELFPAY ==
[2017-07-02 08:57] VITALS: BMI 36.8
[2017-07-02 09:06] VITALS: PULSE 61
[2017-07-02 11:18] LABS: SQUAMOUS EPITHIAL < 1 /hpf (0-5); URINE BILIRUBIN NEGATIVE (NEGATIVE); URINE BLOOD NEGATIVE (NEGATIVE); URINE CLARITY CLEAR (Clear); URINE COLOR YELLOW (YELLOW); URINE GLUCOSE (UA) NEG (Normal); URINE LEUKOCYTE ESTERASE NEG Leu/uL (Negative); URINE NITRATE NEGATIVE (NEGATIVE); URINE PROTEIN NEGATIVE (NEGATIVE); URINE UROBILINOGEN 0.2-1.0 mg/dL (0.2-1.0)
--- NOTE | 2017-07-02 11:30 | ED PDOC ---
HPI: Male Pain Time Seen by Provider: 07/02/17 09:39 Chief Complaint (Nursing): Male Genitourinary Chief Complaint (Provider): Genital Pain History Per: Patient History/Exam Limitations: no limitations Onset/Duration Of Symptoms: Days (x 1 year) Current Symptoms Are (Timing): Still Present Additional Complaint(s): Chi is a 42 y/o male who presents to the ED complaining of pain from the rectum to testicles to penis for 1 year. Patient states he came in today because it was a little more painful. He denies fever, nausea, vomiting, abdominal pain, urinary symptoms, or difficult bowel movements. PMD: None Past Medical History Reviewed: Historical Data, Nursing Documentation, Vital Signs Vital Signs: Last Vital Signs Temp 97.0 F L 07/02/17 09:05 Pulse 61 07/02/17 09:05 Resp 21 07/02/17 09:05 BP 167/77 H 07/02/17 09:05 Pulse Ox 98 07/02/17 09:05 - Medical History PMH: Asthma, HTN Denies: Arthritis - Surgical History Other surgeries: hernia repair - Family History Family History: States: Unknown Family Hx - Social History Current smoker - smoking cessation education provided: No Alcohol: None - Home Medications Home Medications: Ambulatory Orders Medication Instructions Recorded Aspirin [Aspirin Chewable] 81 mg PO DAILY #20 11/13/16 Lisinopril [Zestril] 10 mg PO DAILY #30 tab 11/13/16 hydroCHLOROthiazide [Microzide] 12.5 mg PO DAILY #30 cap 11/13/16 Ibuprofen [Motrin] 600 mg PO Q6H PRN #20 tab 07/02/17 - Allergies Allergies/Adverse Reactions: Allergies Allergy/AdvReac Type Severity Reaction Status Date / Time No Known Allergies Allergy Verified 11/12/16 10:58 Review of Systems ROS Statement: Except As Marked, All Systems Reviewed And Found Negative Constitutional: Negative for: Fever Gastrointestinal: Negative for: Nausea, Vomiting, Abdominal Pain, Rectal Pain Genitourinary Male: Positive for: Scrotal Pain, Penile Pain. Negative for: Dysuria, Frequency, Incontinence, Hematuria Physical Exam - Reviewed Nursing Documentation Reviewed: Yes Vital Signs Reviewed: Yes - Physical Exam Appears: Positive for: No Acute Distress Skin: Positive for: Normal Color, Warm, DRY Eye Exam: Positive for: Normal appearance Neck: Positive for: Normal, Painless ROM Cardiovascular/Chest: Positive for: Regular Rate, Rhythm. Negative for: Murmur Respiratory: Positive for: Normal Breath Sounds. Negative for: Respiratory Distress Gastrointestinal/Abdominal: Positive for: Soft Male Genital Exam: Positive for: normal genitalia (plug wirer: debra), no hernia. Negative for: bleeding, erythema, lesions, scrotum tenderness (R), scrotum tenderness (L), testicular tenderness (R), testicular tenderness (L), urethral discharge Rectal: Positive for: Normal Exam. Negative for: Hemorrhoids, Mass, Tenderness , Other (fluctuance, hemmorhoids, erythema, edema) Extremity: Positive for: Normal ROM Neurologic/Psych: Positive for: Alert, Oriented - ECG O2 Sat by Pulse Oximetry: 98 (RA) Pulse Ox Interpretation: Normal Medical Decision Making Medical Decision Making: Time: 10:39 Initial Impression: Chronic perineal pain Initial Plan: --Urine Dip --Urine Culture --Urinalysis --US Testes Time: 13:13 US Testes FINDINGS: RIGHT TESTICLE: Measures 5.4 x 3.0 x 2.5 cm. Homogeneous echotexture. No mass. Normal flow. RIGHT EPIDIDYMIS: Normal size and morphology LEFT TESTICLE: Measures 4.4 x 3.6 x 2.4 cm. Homogeneous echotexture. No mass. Normal flow. LEFT EPIDIDYMIS: Normal size and morphology. HYDROCELE: Small left hydrocele, complex, with internal echoes. VARICOCELE: No varicocele OTHER FINDINGS: None. IMPRESSION: Mild complex left hydrocele. No evidence of testicular torsion or epididymo- orchitis. Scribe Attestation: Documented by Mitchell Gibbs, acting as a scribe for Joanna Connolly MD Provider Scribe Attestation: All medical record entries made by the Scribe were at my direction and personally dictated by me. I have reviewed the chart and agree that the record accurately reflects my personal performance of the history, physical exam, medical decision making, and the department course for this patient. I have also personally directed, reviewed, and agree with the discharge instructions and disposition. Disposition - Clinical Impression Clinical Impression: Hydrocele in adult - Disposition Referrals: Lemuel Huber Jr., MD [Staff Provider] - Disposition Time: 13:22 Condition: STABLE Prescriptions: Ibuprofen [Motrin] 600 mg PO Q6H PRN #20 tab PRN Reason: Pain, Moderate (4-7) Instructions: Hydrocele (ED) Forms: [facility] (Mongolian) Print Language: ARABIC
--- NOTE | 2017-07-02 13:14 | US ---
HISTORY: Bilateral testicular pain TECHNIQUE: Realtime sonography through the scrotum with color and doppler flow. COMPARISON: None Available. FINDINGS: RIGHT TESTICLE: Measures 5.4 x 3.0 x 2.5 cm. Homogeneous echotexture. No mass. Normal flow. RIGHT EPIDIDYMIS: Normal size and morphology LEFT TESTICLE: Measures 4.4 x 3.6 x 2.4 cm. Homogeneous echotexture. No mass. Normal flow. LEFT EPIDIDYMIS: Normal size and morphology. HYDROCELE: Small left hydrocele, complex, with internal echoes. VARICOCELE: No varicocele OTHER FINDINGS: None. IMPRESSION: Mild complex left hydrocele. No evidence of testicular torsion or epididymo-orchitis.
[2017-07-02 13:50] VITALS: BP 143/85; RESP 20; TEMP 98
[2017-07-04 10:52] VITALS: O2SAT 98
== END 2017-07-02 13:58 | disposition home or self-care (01) ==
LOC: H.ER 08:57
DX: N43.3 Hydrocele, unspecified (principal); I10 Essential (primary) hypertension; J45.909 Unspecified asthma, uncomplicated; Z79.82 Long term (current) use of aspirin

== ENCOUNTER 2018-04-25 12:25 | Emergency (ER) | payer OTHER, SELFPAY ==
[2018-04-25 12:26] VITALS: BMI 36.8
--- NOTE | 2018-04-25 13:14 | ED PDOC ---
HPI: Male Pain Time Seen by Provider: 04/25/18 13:08 Chief Complaint (Nursing): Male Genitourinary Chief Complaint (Provider): burning urination History Per: Patient History/Exam Limitations: no limitations Onset/Duration Of Symptoms: Days (on and off for months ) Current Symptoms Are (Timing): Still Present Quality Of Discomfort: Burning Associated Symptoms: denies: Fever, Chills Additional Complaint(s): Chi Overton is a 42 year old male, with a past medical history of HTN, who presents to the emergency department complaining of burning urination ongoing on and off for months. Patient was seen here a year ago, he was diagnosed with hydrocele but states pain feels different from that time. Roxana ents notes burning sensation when urinating but not always and also reports rectal pain. He denies any fever, chills or other medical complaints. PMD: None provided. Past Medical History Reviewed: Historical Data, Nursing Documentation, Vital Signs Vital Signs: Last Vital Signs Temp 97.3 F L 04/25/18 12:53 Pulse 66 04/25/18 12:53 Resp 20 04/25/18 12:53 BP 165/96 H 04/25/18 12:53 Pulse Ox 99 04/25/18 12:53 - Medical History PMH: Asthma, HTN Denies: Alzheimer's Disease, Anemia, Anxiety, Arthritis, Atrial Fibrillation, Bipolar Disorder, Bronchitis, CAD, Cardia Arrhythmia, CHF, COPD, Crohn's Disease, Dementia, Depression, Diverticulitis, Emphysema, Fractures, Gastritis, Gall Bladder Disease, HIV, Hypercholesterolemia, Hyperthyroidism, Hypothyroidism, Kidney Stones, Migraine, Mitral Valve Prolapse, Multiple Sclerosis, Osteoporosis, Pancreatitis, Paranoia, Parkinson's Disease, Peripheral Edema, Pneumonia, Post Traumatic Stress Disorder, Pulmonary Embolism, Chronic Kidney Disease, Rheumatoid Arthritis, Schizophrenia, Seizures, Sickle Cell Disease, Sexually Transmitted Disease, Sleep Apnea, TIA - Surgical History Surgical History: Denies: Appendectomy, CABG, Carotid Endarterectomy, Cholecystectomy, Coronary Stent, Pacemaker, Tonsillectomy - Family History Family History: States: Unknown Family Hx - Social History Ex-Smoker (has not smoked in the last 12 months): Yes Alcohol: Social Drugs: Denies - Home Medications Home Medications: Ambulatory Orders Medication Instructions Recorded Aspirin [Aspirin Chewable] 81 mg PO DAILY #20 11/13/16 Lisinopril [Zestril] 10 mg PO DAILY #30 tab 11/13/16 hydroCHLOROthiazide [Microzide] 12.5 mg PO DAILY #30 cap 11/13/16 Ibuprofen [Motrin] 600 mg PO Q6H PRN #20 tab 07/02/17 metFORMIN [glucOPHAGE] 500 mg PO DAILY #15 tab 04/25/18 - Allergies Allergies/Adverse Reactions: Allergies Allergy/AdvReac Type Severity Reaction Status Date / Time No Known Allergies Allergy Verified 04/25/18 12:53 Review of Systems ROS Statement: Except As Marked, All Systems Reviewed And Found Negative Constitutional: Negative for: Fever, Chills Genitourinary Male: Positive for: Dysuria Physical Exam - Reviewed Nursing Documentation Reviewed: Yes Vital Signs Reviewed: Yes - Physical Exam Appears: Positive for: No Acute Distress Head Exam: Positive for: ATRAUMATIC, NORMAL INSPECTION, NORMOCEPHALIC Skin: Positive for: Normal Color, Warm, Dry Eye Exam: Positive for: Normal appearance, EOMI, PERRL Neck: Positive for: Normal, Painless ROM Cardiovascular/Chest: Positive for: Regular Rate, Rhythm. Negative for: Murmur Respiratory: Positive for: Normal Breath Sounds. Negative for: Respiratory Distress Gastrointestinal/Abdominal: Positive for: Normal Exam, Soft. Negative for: Tenderness, Guarding, Rebound Back: Positive for: Normal Inspection Rectal: Negative for: Tenderness (No known rectal tenderness, no prostate tenderness to palpation. Verruca noted along the posterior upper left thigh) Extremity: Positive for: Normal ROM (upper and lower extremities). Negative for: Deformity, Swelling Neurologic/Psych: Positive for: Alert, Oriented - Laboratory Results Result Diagrams: 04/25/18 13:49 04/25/18 13:49 - ECG O2 Sat by Pulse Oximetry: 99 (RA) Pulse Ox Interpretation: Normal - Progress ED Course And Treament: repeat blood glucose 178 Medical Decision Making Medical Decision Making: Time: 13:08 Initial Impression: Rectal pain Initial Plan: --CMP --CBC w/ differential --Urine culture --Urinalysis --Testes Duplex complete [US] --Reevaluation 16:17 Testicular Ultrasound FINDINGS: RIGHT TESTICLE: Measures 5.6 x 3.3 x 2.2 cm. Normal echotexture and flow. RIGHT EPIDIDYMIS: Epididymal head measures 0.9 x 0.7 by is a 1.3 cm. Grossly unremarkable appearance with normal flow. LEFT TESTICLE: Measures 5.2 x 3.7 x 2.4 cm. Normal echotexture and flow. LEFT EPIDIDYMIS: Epididymal head measures 0.6 x 0.6 x 1.6 cm. Grossly unremarkable appearance with normal flow. HYDROCELE: Trace left hydrocele appreciated, diminished in the interval. No right hydrocele. VARICOCELE: None. OTHER FINDINGS: Added sonographic interrogation was performed at the perineum revealing no suspicious findings. No fluid collection or mass appreciated. IMPRESSION: 1. Trace left hydrocele, reduced in the interval. None is seen the right. No varicocele bilaterally. 2. No cystic or solid testicular mass or torsion bilaterally. 3. Unremarkable bilateral epididymi. 4. No suspicious finding on limited sonographic interrogation of the perineum. Scribe Attestation: Documented by Lester Montes, acting as a scribe for Roel Starr PA-C Provider Scribe Attestation: All medical record entries made by the Scribe were at my direction and personally dictated by me. I have reviewed the chart and agree that the record accurately reflects my personal performance of the history, physical exam, medical decision making, and the department course for this patient. I have also personally directed, reviewed, and agree with the discharge instructions and disposition. Disposition - Clinical Impression Clinical Impression: Hyperglycemia - Patient ED Disposition Is Patient to be Admitted: No - Disposition Referrals: [facility] [Outside] Disposition: Routine/Home Disposition Time: 17:00 Condition: FAIR Prescriptions: metFORMIN [glucOPHAGE] 500 mg PO DAILY #15 tab Instructions: Hyperglycemia, Adult (DC), The ABCs of Diabetes, Diabetes and Diet Print Language: TRINIDADIAN
[2018-04-25 13:58] LABS: BASO # 0.1 K/uL (0.0-0.2); BASO % 1.1 % (0.0-2.0); EOS # 0.1 K/uL (0.0-0.7); EOS % 0.9 % (0.0-4.0); HEMOGLOBIN 14.7 g/dL (12.0-18.0); LYMPH # 2.7 K/uL (1.0-4.3); LYMPH % 28.7 % (20.0-40.0); MEAN CELL VOLUME 87.3 fl (80.0-94.0); MEAN CORPUSCULAR HEMOGLOBIN 29.4 pg (27.0-31.0); MEAN CORPUSCULAR HGB CONC 33.7 g/dL (33.0-37.0); MEAN PLATELET VOLUME 8.6 fl (7.2-11.7); MONO # 0.6 K/uL (0.0-0.8); MONO % 6.6 % (0.0-10.0); NEUT # 5.9 K/uL (1.8-7.0); NEUT % 62.7 % (50.0-75.0); NRBC % 0.2 % (0.0-0.0); RBC 5.01 Mil/uL (4.40-5.90); RED CELL DISTRIBUTION WIDTH 12.5 % (11.5-14.5); WHITE BLOOD COUNT 9.4 K/uL (4.8-10.8)
[2018-04-25 14:12] LABS: ALB/GLOB RATIO 1.5 (1.0-2.1); ALBUMIN 4.3 g/dL (3.5-5.0); ALT/SGPT 63 U/L (21-72); AST/SGOT 27 U/L (17-59); BLOOD UREA NITROGEN 18 mg/dl (9-20); CALCIUM 9.4 mg/dL (8.4-10.2); GFR NON-AFRICAN AMERICAN > 60
[2018-04-25 14:12] LABS: SQUAMOUS EPITHIAL < 1 /hpf (0-5); URINE BILIRUBIN NEGATIVE (NEGATIVE); URINE BLOOD NEGATIVE (NEGATIVE); URINE CLARITY CLEAR (Clear); URINE COLOR STRAW (YELLOW); URINE GLUCOSE (UA) >=500 mg/dL (Normal); URINE LEUKOCYTE ESTERASE NEG Leu/uL (Negative); URINE PROTEIN NEGATIVE (NEGATIVE); URINE UROBILINOGEN 0.2-1.0 mg/dL (0.2-1.0)
[2018-04-25] MEDS ORDERED: Sodium Chloride 0.9% 1,000 ML IV STA (15:13)
--- NOTE | 2018-04-25 16:20 | US ---
Date of service: 04/25/2018 HISTORY: perineal pain TECHNIQUE: Realtime sonography through the scrotum with color and doppler flow. COMPARISON: Scrotal ultrasound 07/02/2017. FINDINGS: RIGHT TESTICLE: Measures 5.6 x 3.3 x 2.2 cm. Normal echotexture and flow. RIGHT EPIDIDYMIS: Epididymal head measures 0.9 x 0.7 by is a 1.3 cm. Grossly unremarkable appearance with normal flow. LEFT TESTICLE: Measures 5.2 x 3.7 x 2.4 cm. Normal echotexture and flow. LEFT EPIDIDYMIS: Epididymal head measures 0.6 x 0.6 x 1.6 cm. Grossly unremarkable appearance with normal flow. HYDROCELE: Trace left hydrocele appreciated, diminished in the interval. No right hydrocele. VARICOCELE: None. OTHER FINDINGS: Added sonographic interrogation was performed at the perineum revealing no suspicious findings. No fluid collection or mass appreciated. IMPRESSION: 1. Trace left hydrocele, reduced in the interval. None is seen the right. No varicocele bilaterally. 2. No cystic or solid testicular mass or torsion bilaterally. 3. Unremarkable bilateral epididymi. 4. No suspicious finding on limited sonographic interrogation of the perineum.
[2018-04-25 17:58] VITALS: BP 162/92; PULSE 74; RESP 18; TEMP 98.2; O2SAT 98
== END 2018-04-25 17:58 | disposition home or self-care (01) ==
LOC: H.ER 12:25
DX: R73.9 Hyperglycemia, unspecified (principal); I10 Essential (primary) hypertension; J45.909 Unspecified asthma, uncomplicated; Z79.82 Long term (current) use of aspirin; Z79.84 Long term (current) use of oral hypoglycemic drugs; Z87.891 Personal history of nicotine dependence; E11.9 Type 2 diabetes mellitus without complications
CPT/HCPCS: 80053; 81003; 82948; 85025; 87086; 93975; 96360; 99283; J7030